=== PATIENT | male | born 1990 | race American Indian/Alaskan Native ===

== ENCOUNTER 2017-02-20 14:23 | Emergency (ER) | payer SELFPAY ==
[2017-02-20 14:52] VITALS: BP 145/81
--- NOTE | 2017-02-20 15:38 | XRay Report ---
Right knee 3 views: History: Injury. Findings: There is suspected fracture noted of the tibial tuberosity or tibial articular surface. There is fluid noted in the suprapatellar bursae. The articular surface of patella and femur unremarkable. Impression: Findings as detailed above. Recommend CT scan for further evaluation.
--- NOTE | 2017-02-20 16:29 | Emergency Department Report ---
ED Lower Extremity HPI - General Chief Complaint: Extremity Injury, Lower Stated Complaint: RT KNEE PAIN Time Seen by Provider: 02/20/17 16:28 Source: patient, family Mode of arrival: Ambulatory Limitations: No Limitations - History of Present Illness Initial Comments: Patient here reported that he was walking up some steps this morning and his any was injured he said he was moving and he missed the store and twisted his knee and he heard a pop. He said his knee got dislocated bones back into place. He reports pain 10 out of 10 throbbing and achy. He reports that it's difficult for him to move his knee. He reports knee swelling. He said this happened 8-9 out of 10. Denies any fever or chills. Denies any history of arthritis or knee pain. Denies any radiation of pain to his legs or feet or any numbness or tingling. MD Complaint: knee injury (right knee) -: This morning Injury: Knee: Right (pain, swelling and difficulty moving status post injury) Type of Injury: inversion Place: street/outdoors Severity: severe Severity scale (0 -10): 10 Improves With: immobilization, rest Worsens With: weight bearing, movement, palpation Context: walking (twisted his right knee by walking up steps and missed a step.) Associated Symptoms: snap/pop sensation, swelling, unable to bear weight. denies: numbness, tingling Treatments Prior to Arrival: other (none) - Related Data Previous Rx's Medication Instructions Recorded Last Taken Type metroNIDAZOLE [Flagyl] 500 mg PO Q8H #21 tablet 03/15/15 Unknown Rx Ibuprofen [Motrin] 600 mg PO Q8H PRN #21 tablet 02/20/17 Unknown Rx oxyCODONE /ACETAMINOPHEN [Percocet 1 tab PO Q6HR PRN #20 tablet 02/20/17 Unknown Rx 5/325] Allergies Allergy/AdvReac Type Severity Reaction Status Date / Time No Known Allergies Allergy Verified 03/15/15 21:10 ED Review of Systems ROS: Stated complaint: RT KNEE PAIN Other details as noted in HPI Comment: All other systems reviewed and negative Constitutional: denies: chills, fever Respiratory: no symptoms reported Cardiovascular: denies: chest pain, palpitations, edema, syncope Gastrointestinal: denies: abdominal pain, nausea, vomiting Musculoskeletal: joint swelling, arthralgia. denies: back pain, myalgia Skin: denies: rash Neurological: abnormal gait. denies: headache, weakness, numbness, paresthesias , vertigo ED Past Medical Hx - Past Medical History Previous Medical History?: No Hx Hypertension: No Hx CVA: No Hx Heart Attack/AMI: No Hx Congestive Heart Failure: No Hx Diabetes: No Hx Deep Vein Thrombosis: No Hx Pulmonary Embolism: No Hx GERD: No Hx Liver Disease: No Hx Renal Disease: No Hx of Cancer: No Hx Sickle Cell Disease: No Hx Arthritis: No Hx Headaches / Migraines: No Hx Seizures: No Hx Kidney Stones: No Hx Psychiatric Treatment: No Hx Asthma: No Hx COPD: No Hx Tuberculosis: No Hx Dementia: No Hx HIV: No - Surgical History Past Surgical History?: No Hx Coronary Stent: No Hx Open Heart Surgery: No Hx Pacemaker: No Hx Internal Defibrillator: No Hx Cholecystectomy: No Hx Appendectomy: No Hx Breast Surgery: No - Family History Family history: no significant - Social History Smoking Status: Current Every Day Smoker Substance Use Type: Alcohol - Medications Home Medications: Home Medications Medication Instructions Recorded Confirmed Last Taken Type metroNIDAZOLE [Flagyl] 500 mg PO Q8H #21 tablet 03/15/15 Unknown Rx Ibuprofen [Motrin] 600 mg PO Q8H PRN #21 tablet 02/20/17 Unknown Rx oxyCODONE /ACETAMINOPHEN [Percocet 1 tab PO Q6HR PRN #20 tablet 02/20/17 Unknown Rx 5/325] ED Physical Exam - General Limitations: No Limitations General appearance: alert, in no apparent distress - Head Head exam: Present: atraumatic, normocephalic, normal inspection - Eye Eye exam: Present: normal appearance, PERRL, EOMI. Absent: periorbital swelling , periorbital tenderness Pupils: Present: normal accommodation - ENT ENT exam: Present: normal exam, normal orophraynx, mucous membranes moist, TM's normal bilaterally, normal external ear exam - Neck Neck exam: Present: normal inspection, full ROM. Absent: tenderness, meningismus, lymphadenopathy - Respiratory Respiratory exam: Present: normal lung sounds bilaterally. Absent: respiratory distress, chest wall tenderness - Cardiovascular Cardiovascular Exam: Present: regular rate, normal rhythm, normal heart sounds - GI/Abdominal GI/Abdominal exam: Present: soft, normal bowel sounds. Absent: distended, tenderness, guarding, rebound, rigid - Extremities Exam Extremities exam: Present: normal inspection, other (left lower extremity with normal exam.) - Expanded Lower Extremity Exam Right Hip exam: Present: normal inspection, full ROM, pelvic stability. Absent: tenderness, swelling, abrasion, laceration, ecchymosis, deformity, crepidus, dislocation, erythema, external rotation, internal rotation, shortening Upper Leg exam: Present: normal inspection, full ROM. Absent: tenderness, swelling, abrasion, laceration, ecchymosis, deformity, crepidus, dislocation, erythema Knee exam: Present: tenderness (right knee), swelling (right knee), effusion, pain w/ pronation/supination. Absent: normal inspection, full ROM (Limited range of motion. Difficulties and pain with flexing and extending right knee.) , abrasion, laceration, ecchymosis, deformity, dislocation, erythema, posterior draw sign, pain/laxity with valgus, pain/laxity with varus, full knee extension Lower Leg exam: Present: normal inspection, full ROM. Absent: tenderness, swelling, abrasion, laceration, ecchymosis, deformity, crepidus, dislocation, erythema, palpable cord, Khadar's sign Ankle exam: Present: normal inspection, full ROM. Absent: tenderness, swelling , abrasion, laceration, ecchymosis, deformity, crepidus, dislocation, erythema Foot/Toe exam: Present: normal inspection, full ROM. Absent: tenderness, swelling, abrasion, laceration, ecchymosis, deformity, crepidus, dislocation, erythema, amputation, puncture wound, foreign body, calcaneal tenderness, tenderness at base of 5th metatarsal, nail avulsion, subungual hematoma Neuro vascular tendon exam: Present: no vascular compromise. Absent: pulse deficit, abnormal cap refill, motor deficit, sensory deficit, tendon deficit, extremity cold to touch, pallor, abnormal 2-point discrimination, decreased fine /light touch, foot drop, peroneal nerve deficit, significant pain with passive ROM of distal joint Gait: Positive: unable to bear weight (patient with no signs of compartment syndrome) ED Course Vital Signs 02/20/17 14:46 Temperature 97.8 F Pulse Rate 89 Respiratory 18 Rate Blood Pressure 145/81 Blood Pressure 145/81 [Right] O2 Sat by Pulse 100 Oximetry - Reevaluation(s) Reevaluation #1: 02/20/17 18:38 Patient received Percocet 5/325 2 tablets emergency room for knee pain. X-ray which recommended CT scan of his right knee due to possible fracture. CT scan of the right knee, came back positive for possible ligament injury and fracture of the knee. This was communicated to patient and his pain is better now. I also consulted with Dr. Marks who is orthopedic in house. He agrees with patient to have knee immobilizer and go home and crutches and call his office on Thursday for outpatient visit. Reevaluation #2: 02/20/17 19:06 Pulses knee immobilizer check, patient will good color, movement, sensation in temperature and no signs of compartment syndrome. - Consultations Consultation #1: 02/20/17 18:43 Dr. Marks orthopedist. - Orthopedic Splinting/Casting Injury #1 Side: right Lower Extremity Injury Location: knee Lower Extremity Immobilizer: knee immobilizer Other Orthopedic Equipment: crutches ED Lower Extremity MDM - Radiology Data Radiology results: report reviewed X-ray of right knee reveals suspected fracture noted of the tibial tuberosity or tibial articular surface. There is fluid noted in the suprapatellar bursa. The articular surface of patella and femur are unremarkable. Recommend CT scan for further evaluation. T scan of the right knee reveals small intra-articular fracture fragments at the medial aspect of the tibia likely reflecting avulsion fractures as a revision of the ACL. PCL injury cannot be excluded. Small cortical fracture lateral tibial plateau. Consideration could be given to LCL injury. Moderate joint effusion. Radiologist recommended consider follow-up MRI for further evaluation. - Medical Decision Making ED Course: Patient status post right knee injury with moderate size joint effusion and multiple small intra-articular fracture fragments seen on. Need to aspect of the proximal tibia and tibial spines most consistent with avulsion injury likely the tibial insertion of the ACL. There is also fracture at the tibial plateau which is minimal. Possible ACL, PCL and LCL injury. I spoke with Dr. Marks via phone and he agrees with plan to place patient in knee immobilizer and crutches and have him follow-up in his office on Thursday. Patient was given Percocet 5/325 2 tablets in emergency room which relieved his pain. See procedure note for details on splinting. Chin updated on x-ray results and final CT scan results, treatment plan and follow-up plans. He voices understanding and agrees. Patient discharged home in a right knee immobilizer and crutches with his family with prescription for Motrin and Percocet. Critical care attestation.: If time is entered above; I have spent that time in minutes in the direct care of this critically ill patient, excluding procedure time. ED Disposition Clinical Impression: Knee effusion, right, Arthralgia of knee, right Injury of right knee Qualifiers: Encounter type: initial encounter Qualified Code(s): S89.91XA - Unspecified injury of right lower leg, initial encounter Injury of ligament of right knee Qualifiers: Encounter type: initial encounter Qualified Code(s): S89.91XA - Unspecified injury of right lower leg, initial encounter Fracture of proximal end of right tibia Qualifiers: Encounter type: initial encounter Fracture type: closed Fracture morphology: unspecified fracture morphology Qualified Code(s): S82.101A - Unspecified fracture of upper end of right tibia, initial encounter for closed fracture Disposition: DISCHARGED TO HOME OR SELFCARE Is pt being admited?: No Does the pt Need Aspirin: No Condition: Stable Instructions: Knee Effusion (ED), Arthralgia (ED), Knee Immobilizer (ED), Leg Fracture (ED), Ligament Sprain (ED) Additional Instructions: I discussed the patient that he will need to follow-up with Dr. Marks with orthopedic doctor to call office on Thursday to schedule appointment. Rest, ice, compress and elevate the area. No Weightbearing to right lower extremity. Keep knee immobilizer on until you see orthopedic doctor. Do not take Percocet while driving or operating heavy machinery this medication causes drowsiness Prescriptions: Ibuprofen [Motrin] 600 mg PO Q8H PRN #21 tablet PRN Reason: Pain oxyCODONE /ACETAMINOPHEN [Percocet 5/325] 1 tab PO Q6HR PRN #20 tablet PRN Reason: Pain , Severe (7-10) Referrals: Kendrick Patel Othopedic Doctor [Other] - 02/23/17 Forms: Work/School Release Form(ED)
[2017-02-20] MEDS ORDERED: PERCOCET 5/325 PO ONE (17:11)
--- NOTE | 2017-02-20 18:17 | Cat Scan Report ---
FINAL REPORT EXAM: CT LOWER EXTREMITY RT WO CON HISTORY: Rt knee injury, radiologist recommmend CT scan TECHNIQUE: CT of the right knee without contrast PRIORS: No prior exams are submitted for comparison FINDINGS: There moderate size joint effusion present multiple small intra-articular fracture fragments are seen anterior medial aspect the proximal tibia the tibial spines most consistent avulsion injury likely the tibial insertion of the ACL. There is small cortical lucency seen lateral tibial plateau could reflect avulsion injury at the insertion of the lateral collateral ligament. Patella demonstrates normal position. No distal femoral fractures are appreciated. The proximal fibula is intact. IMPRESSION: Small intra-articular fraction fragments at the medial aspect of the tibia likely reflecting avulsion fractures at the origin of the ACL. PCL injury cannot be excluded. Small cortical fracture lateral tibial plateau. Consideration could be given to LCL injury Joint effusion Consider followup MRI for further characterization
== END 2017-02-20 19:20 | disposition home or self-care (01) ==
LOC: ED 14:23
DX: S82.91XA Unspecified fracture of right lower leg, initial encounter for closed fracture (principal); S89.91XA Unspecified injury of right lower leg, initial encounter; M25.461 Effusion, right knee; F17.200 Nicotine dependence, unspecified, uncomplicated